=== PATIENT | female | born 1990 | race Caucasian/White ===

== ENCOUNTER 2017-03-01 01:45 | Emergency (ER) | payer SELFPAY ==
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
[2017-03-01 03:00] VITALS: BP 122/64
== END 2017-03-01 02:55 | disposition home or self-care (01) ==
LOC: ED 01:45
DX: F41.9 Anxiety disorder, unspecified (principal)
CPT/HCPCS: 99283